=== PATIENT | male | born 1975 | race Caucasian/White ===

== ENCOUNTER 2020-11-25 21:10 | Emergency (ER) | payer BC ==
--- NOTE | 2020-11-25 21:32 | EDM.PDOC ---
ED [facility] GENERAL MEDICAL PROBLEM - General Chief Complaint: Lower Extremity Injury/Pain Stated Complaint: INJURED LEFT FOOT Time Seen by Provider: 11/25/20 21:20 Source of Information: Reports: Patient History Limitations: Reports: No Limitations - History of Present Illness INITIAL COMMENTS - FREE TEXT/NARRATIVE: This 45 yo male patient reports to the ED with left foot and ankle pain. The patient reports he jumped off the end of a dock and hit his foot on the bottom of the wolfe. The patient has noticed increased swelling in his foot and pain with ambulating since the injury. Onset: Today Duration: Minutes: Location: Reports: Lower Extremity, Left Quality: Reports: Ache, Dull Severity: Moderate Improves with: Reports: Rest Worsens with: Reports: Movement Context: Reports: Activity Associated Symptoms: Reports: No Other Symptoms Left Foot Pain Score (Numeric/FACES): 6 - Related Data Allergies Allergy/AdvReac Type Severity Reaction Status Date / Time No Known Allergies Allergy Verified 11/25/20 21:26 Home Meds: Home Meds Sertraline HCl [Zoloft] 150 mg PO 11/25/20 [History] Review of Systems - Review of Systems Review Of Systems: Comprehensive ROS is negative, except as noted in HPI. ED EXAM, GENERAL - Physical Exam Exam: See Below Exam Limited By: No Limitations General Appearance: Alert, WD/WN, Mild Distress Eye Exam: Bilateral Eye: EOMI, Normal Inspection, PERRL Ears: Normal External Exam, Normal Canal, Hearing Grossly Normal, Normal TMs Nose: Normal Inspection, Normal Mucosa, No Blood Throat/Mouth: Normal Inspection, Normal Lips, Normal Teeth, Normal Gums, Normal Oropharynx, Normal Voice, No Airway Compromise Head: Atraumatic, Normocephalic Neck: Normal Inspection, Supple, Non-Tender, Full Range of Motion Respiratory/Chest: No Respiratory Distress, Lungs Clear, Normal Breath Sounds, No Accessory Muscle Use, Chest Non-Tender Cardiovascular: Normal Peripheral Pulses, Regular Rate, Rhythm, No Edema, No Gallop, No JVD, No Murmur, No Rub GI/Abdominal: Normal Bowel Sounds, Soft, Non-Tender, No Organomegaly, No Distention, No Abnormal Bruit, No Mass (Male) Exam: Deferred Rectal (Males) Exam: Deferred Back Exam: Normal Inspection, Full Range of Motion, NT Extremities: Leg Pain (left ankle and foot pain with swelling) Neurological: Alert, Oriented, CN II-XII Intact, Normal Cognition, Normal Gait, Normal Reflexes, No Motor/Sensory Deficits Psychiatric: Normal Affect, Normal Mood Skin Exam: Warm, Dry, Intact, Normal Color, No Rash Lymphatic: No Adenopathy Course - Vital Signs Last Recorded V/S: Last Vital Signs Temp 98 F 11/25/20 21:22 Pulse 104 H 11/25/20 21:22 Resp 18 11/25/20 21:22 BP 123/76 11/25/20 21:22 Pulse Ox 97 11/25/20 21:22 - Radiology Interpretation Free Text/Narrative:: [facility] Final Radiology Report Call: [phone] assistance Online chat: [email or web address] Name: YESI CONNOLLY Age: 45Years M Date: 11/25/2020 SSN: -- : [id number] Study: CR ANKLE MIN 3V LT Requesting Physician: Denver Gay Images: 3 Addl Studies: Provided Clinical History: left foot and ankle pain, hit left foot on the bottom of the wolfe after jumping into the [place] Contrast: Contrast Medium: Contrast Amount: Contrast Method: CONFIDENTIALITY STATEMENT This report is intended only for use by the referring physician, and only in accordance with law. If you received this in error, call [phone]. Page 1 of 1 PROCEDURE INFORMATION: Exam: XR Left Ankle Exam date and time: 11/25/2020 9:32 PM Age: 45 years old Clinical indication: Pain; Ankle; Left; Additional info: Left foot and ankle pain, hit left foot on the bottom of the wolfe after jumping into the wolfe TECHNIQUE: Imaging protocol: XR Left ankle. Views: 3 or more views. COMPARISON: No relevant prior studies available. FINDINGS: Bones/joints: Normal anatomic alignment. There is no evidence of acutely displaced fractures. There is no evidence of joint dislocation. No aggressive osseous lesions. Soft tissues: There is no significant soft tissue swelling. IMPRESSION: Negative for acute skeletal pathology. Thank you for allowing us to participate in the care of your patient. Dictated and Authenticated by: Nathan Stout MD 11/25/2020 10:40 PM Central Time ([place] & [place]) [facility] [place] [facility] Final Radiology Report Call: [phone] assistance Online chat: [email or web address] Name: YESI CONNOLLY Age: 45Years M Date: 11/25/2020 SSN: -- : [id number] Study: CR FOOT COMP MIN 3V LT Requesting Physician: Denver Gay Images: 3 Addl Studies: Provided Clinical History: left foot and ankle pain, hit left foot on the bottom of the wolfe after jumping into the wolfe Contrast: Contrast Medium: Contrast Amount: Contrast Method: CONFIDENTIALITY STATEMENT This report is intended only for use by the referring physician, and only in accordance with law. If you received this in error, call [phone]. Page 1 of 1 PROCEDURE INFORMATION: Exam: XR Left Foot Exam date and time: 11/25/2020 9:33 PM Age: 45 years old Clinical indication: Pain; Foot; Left; Additional info: Left foot and ankle pain, hit left foot on the bottom of the wolfe after jumping into the wol[place] TECHNIQUE: Imaging protocol: XR Left foot. Views: 3 or more views. COMPARISON: No relevant prior studies available. FINDINGS: Bones/joints: Normal anatomic alignment. There is no evidence of acutely displaced fractures. There is no evidence of joint dislocation. No aggressive osseous lesions. Soft tissues: There is no significant soft tissue swelling. IMPRESSION: Negative for acute skeletal pathology. Thank you for allowing us to participate in the care of your patient. Dictated and Authenticated by: Nathan Stout MD 11/25/2020 10:42 PM Central Time ([place] & [place]) Departure - Departure Time of Disposition: 22:53 Disposition: Home, Self-Care 01 Condition: Fair Clinical Impression: Contusion of left foot Qualifiers: Encounter type: initial encounter Qualified Code(s): S90.32XA - Contusion of left foot, initial encounter - Discharge Information *PRESCRIPTION DRUG MONITORING PROGRAM REVIEWED*: Not Applicable *COPY OF PRESCRIPTION DRUG MONITORING REPORT IN PATIENT AMOR: Not Applicable Instructions: Foot Contusion, [id number] Forms: ED Department Discharge Care Plan Goals: The patient was advised of the examination and x-ray results during the visit. The patient's left foot was wrapped in an ERNESTO wrap during the visit. The patient was encouraged to rest, ice, compress and elevate his left foot and ankle over the next 24 hours. The patient may take Tylenol or ibuprofen for temporary symptom relief. If the patient has any additional symptoms or concerns, the patient should either visit his primary care facility or return to the emergency department. Sepsis Event Note (ED) - Evaluation Sepsis Screening Result: No Definite Risk - Focused Exam Vital Signs: Vital Signs Temp Pulse Resp BP Pulse Ox 11/25/20 21:22 98 F 104 H 18 123/76 97
--- NOTE | 2020-11-25 22:41 | CR ---
PROCEDURE INFORMATION: Exam: XR Left Ankle Exam date and time: 11/25/2020 9:32 PM Age: 45 years old Clinical indication: Pain; Ankle; Left; Additional info: Left foot and ankle pain, hit left foot on the bottom of the wolfe after jumping into the wolfe TECHNIQUE: Imaging protocol: XR Left ankle. Views: 3 or more views. COMPARISON: No relevant prior studies available. FINDINGS: Bones/joints: Normal anatomic alignment. There is no evidence of acutely displaced fractures. There is no evidence of joint dislocation. No aggressive osseous lesions. Soft tissues: There is no significant soft tissue swelling. IMPRESSION: Negative for acute skeletal pathology.
--- NOTE | 2020-11-25 22:43 | CR ---
PROCEDURE INFORMATION: Exam: XR Left Foot Exam date and time: 11/25/2020 9:33 PM Age: 45 years old Clinical indication: Pain; Foot; Left; Additional info: Left foot and ankle pain, hit left foot on the bottom of the wolfe after jumping into the wol[place] TECHNIQUE: Imaging protocol: XR Left foot. Views: 3 or more views. COMPARISON: No relevant prior studies available. FINDINGS: Bones/joints: Normal anatomic alignment. There is no evidence of acutely displaced fractures. There is no evidence of joint dislocation. No aggressive osseous lesions. Soft tissues: There is no significant soft tissue swelling. IMPRESSION: Negative for acute skeletal pathology.
== END 2020-11-25 23:00 | disposition home or self-care (01) ==
LOC: DL.ED 21:10
DX: S90.32XA Contusion of left foot, initial encounter (principal); W17.89XA Other fall from one level to another, initial encounter; W22.8XXA Striking against or struck by other objects, initial encounter
CPT/HCPCS: 73610-LT; 73630-LT; 99282; 99283-25